=== PATIENT | male | born 1955 | race Two or more races ===

== ENCOUNTER → 2021-06-18 | Emergency (ER) | payer OTHER ==
[~2021-06-18] VITALS: Ht 172.7 cm; Wt 74.4 kg
[~2021-06-18] MED LIST: EMERGEN-C 1,01000 MG PO
== END ==
LOC: ER 14:19
DX: R07.9 Chest pain, unspecified (principal); Z20.822 Contact with and (suspected) exposure to COVID-19